=== PATIENT | female | born 2005 | race African-American/Black ===

== ENCOUNTER 2025-05-24 19:09 | Observation (INO) ==
--- NOTE | 2025-05-24 19:34 | Emergency Department Note ---
Impression & Plan Acute hyperglycemia, Nausea & vomiting ED Provider Note CHIEF COMPLAINT: Nausea, vomiting, diarrhea x 1 day HISTORY OF PRESENT ILLNESS: This 19-year-old female patient presents to the emergency department via private vehicle for evaluation of nausea, vomiting, diarrhea. Symptoms started this morning. Patient presents with her friend/roommate who assists with the history. The patient and her roommate both ate Surendra Norman's swabs last evening. She states that this morning, both she and her roommate were vomiting. The patient finished her swab this morning and her symptoms progressed and worsened throughout the day. The roommate did not have any leftovers this morning and states her symptoms have resolved. She does admit to drinking some wine yesterday and had a shooter earlier today. She did vomit the shooter back up. She has been unable to keep down any food or fluids all day today. She developed runny diarrhea this evening. The patient states about 1 to 2 hours ago, she developed some tightness when she breathes and tingling down her extremities. She is not on OCPs. No leg pain or swelling. No recent surgery or procedure. She did recently travel about 2 weeks ago from [facility], but denies any personal or family history of DVT or PE. The patient states the difficulty breathing came on after the nausea, vomiting, and diarrhea have been ongoing. The patient did not try any medications for her symptoms. She denies any abdominal pain, but states her stomach feels upset. Denies any chest pain. No cough or recent URI symptoms. Patient denies any history of similar symptoms. She is on Prozac, but has been taking this medication for about 5 weeks with no medication dose changes or adjustments. History provided by: Patient and roommate REVIEW OF SYSTEMS: A 10 system review of systems was performed with positives and pertinent negatives listed in the history of present illness. All other systems were reviewed and are negative. ALLERGIES: NKDA PHYSICAL EXAM: VITALS: Vitals are noted on the nurse's note and reviewed by myself. GENERAL: This is a 19-year-old female, ill-appearing, in no acute distress, diaphoretic, well-developed well-nourished. SKIN: The skin was without rashes, erythema, edema, or bruising. There is no tenting of the skin. Capillary refill less than 2 seconds. HEAD: Normocephalic atraumatic. EYES: Conjunctivae without injection, sclerae without icterus. NOSE: Patent, turbinates without inflammation or discharge. No sinus tenderness. MOUTH: Mucous membranes moist. Tonsils are not enlarged. Pharynx without erythema or exudate. Uvula midline. Airway patent. Tongue does not deviate. NECK: Supple without nuchal rigidity. No lymphadenopathy. Cervical spine is nontender. No JVD. HEART: Regular rate and rhythm without murmurs gallops or rubs. LUNGS: Clear to auscultation bilaterally without wheezes, rales or rhonchi. No retractions or accessory muscle use. ABDOMEN: Positive bowel sounds x 4. Soft, nontender, without masses or organomegaly. Truong sign negative. No guarding or rebound tenderness. MUSCULOSKELETAL: No muscle atrophy, erythema, or edema noted. Full range of motion without joint tenderness in all extremities. No tenderness to palpation. Normal gait. Strength 5/5 throughout. NEURO: Patient was alert and oriented to person place and time. Normal sensation to light and sharp touch. Deep tendon reflexes 2+ throughout. No focal neurological deficits. An order was placed for continuous cardiac cath technician. The monitor showed a normal sinus rhythm at a ventricular rate of 92 bpm, per my interpretation. EKG was reviewed by myself and found to be sinus bradycardia with sinus arrhythmia at a rate of 57 beats per minute and per my interpretation reveals no ST elevation or depression. No T wave inversion. No prior EKG available for comparison. Imaging as interpreted by myself and the radiologist revealed no acute findings, with radiologist interpretation as above. I agree with the radiologist's findings as based upon my independent interpretation. EMERGENCY DEPARTMENT COURSE: The patient was evaluated as above. The patient presents to the emergency department for nausea, vomiting, diarrhea. This been ongoing for about a day. The patient is ill-appearing on examination. She is diaphoretic and actively dry heaving. IV access was obtained, labs were drawn. The patient was hydrated with 1 L of IV fluids. She was medicated with Zofran and Toradol. Labs reviewed. Per my interpretation, there is a leukocytosis of 17,000. No concerning anemia or thrombocytopenia. Coags normal. Renal function without significant abnormality. Hepatic function without significant abnormality. Patient mildly hypokalemic with a potassium of 3.2. Sodium is normal. Magnesium 2.1. hCG negative. Blood glucose elevated at 247. Urinalysis with 4+ ketones, 2+ glucose, epithelial cells. Stool culture is negative. Alcohol less than 10. VBG was added at this time due to the hyperglycemia. This shows a pH of 7.37, PCO2 of 30. The patient was medicated with an additional dose of IV Zofran. She remained nauseated and was medicated with IV Reglan and Benadryl. She was given additional 500 cc bolus of IV fluids. Repeat BSG 171 after first 1L IV fluids. I discussed case with my attending physician. Do recommend escalation of care/admission given the patient's new onset hyperglycemia. I am concerned that this could be a DKA presentation. Negative stool culture, so lower suspicion for food-borne illness or viral cause at this time. Patient was agreeable to admission. She denies any history of hyperglycemia or diabetes. I discussed case with Dr. Gonzales. He did agree to evaluate the patient. Please see his dictation regarding ongoing management of this patient. Case was discussed with the attending physician. This visit is during a period of high volume and high acuity in the emergency department. I attest that I have personally reviewed the patient medication list. I attest that I have reviewed the patient's blood pressure and it was found to be normal GCS: 15 In the evaluation and treatment of this patient the following differential diagnoses were entertained: Gastroenteritis, food borne illness, infections, appendicitis, diverticulitis, inflammatory bowel disease, obstruction, GI bleed, biliary pathology, volvulus, PE, pneumonia, viral illness, as well as other pathologies. The chart was completed utilizing [employer] Speech voice recognition software. Grammatical errors, random word insertions, pronoun errors, and incomplete sentences are an occasional consequence of this system due to software limitations, ambient noise, and hardware issues. Any formal questions or concerns about the content, text, or information contained within the body of this dictation should be directly addressed to the provider for clarification. Past Med/Surg History Problem List (Updated 05/25/25 @ 01:45 by Nicole Jack PA-C) Nausea & vomiting (Acute) Acute hyperglycemia (Acute) Medical History No pertinent past medical history Social History Smoking Status: Never smoker Preferred Language: [place] Feels Safe at Home: Yes Allergies Allergies Allergy/AdvReac Type Severity Reaction Status Date / Time No Known Allergies Allergy Verified 05/24/25 20:50 Home Meds Home Medications Medication Instructions Recorded Confirmed fluoxetine 20 mg capsule (Prozac) 20 mg PO DAILY 05/24/25 05/24/25 Results & Data (ED) Vital Signs Vital Signs - 24 hr 05/24/25 19:11 05/24/25 19:39 05/24/25 19:45 Temperature 36.3 C L Temperature Source Oral Pulse Rate 92 H 59 L 55 L Pulse Rate [Left Apical] Respiratory Rate 18 20 Respiratory Effort / Characteristics Non-Labored Spontaneous Respiratory Depth Normal Respiratory Pattern Regular Blood Pressure 131/94 134/89 Blood Pressure [Right Arm] Blood Pressure Mean 106 104 Blood Pressure Mean [Right Arm] Blood Pressure Position Sitting Pulse Oximetry 100 100 Oxygen Delivery Method Room Air Room Air Sepsis Recent Fever Within 48 Hours No Sepsis New/Unexplained Change in Mental Status N/A Sepsis Action Taken by Nursing No Action Required 05/24/25 20:01 05/24/25 20:12 05/24/25 20:27 Temperature Temperature Source Pulse Rate 79 92 H Pulse Rate [Left Apical] Respiratory Rate 19 22 Respiratory Effort / Characteristics Respiratory Depth Respiratory Pattern Blood Pressure 130/105 H Blood Pressure [Right Arm] Blood Pressure Mean 118 Blood Pressure Mean [Right Arm] Blood Pressure Position Pulse Oximetry 100 100 Oxygen Delivery Method Room Air Room Air Sepsis Recent Fever Within 48 Hours Sepsis New/Unexplained Change in Mental Status Sepsis Action Taken by Nursing 05/24/25 21:34 05/24/25 22:12 05/24/25 22:54 Temperature Temperature Source Pulse Rate 66 Pulse Rate [Left Apical] 70 Respiratory Rate 24 20 Respiratory Effort / Characteristics Non-Labored Spontaneous Respiratory Depth Normal Respiratory Pattern Regular Blood Pressure Blood Pressure [Right Arm] 122/86 121/80 Blood Pressure Mean Blood Pressure Mean [Right Arm] 98 93 Blood Pressure Position Pulse Oximetry 100 100 Oxygen Delivery Method Room Air Room Air Sepsis Recent Fever Within 48 Hours Sepsis New/Unexplained Change in Mental Status Sepsis Action Taken by Nursing Laboratory Data 05/24/25 19:45 05/25/25 00:16 Lab Results 05/24/25 05/24/25 05/24/25 Range/Units 19:45 19:48 20:06 WBC 16.94 H (4.8-10.8) K/ul RBC 4.75 (4.20-5.40) M/uL Hgb 13.7 (12.0-16.0) g/dl Hct 41.4 (37.0-47.0) % MCV 87.2 (80.0-100.0) fL MCH 28.8 (25.0-34.0) pg MCHC 33.1 (32.0-36.0) g/dL RDW Std Deviation 41.7 (36.4-46.3) fL RDW Coeff of Allie 13.0 (11.5-14.5) % Plt Count 430 H (130-400) K/uL MPV 9.5 (9.4-12.4) fL Immature Gran % (Auto) 0.4 % Neut % (Auto) 87.5 % Lymph % (Auto) 8.0 % [place] % (Auto) 3.9 % Eos % (Auto) 0.0 % Baso % (Auto) 0.2 % Neut # (Auto) 14.84 H (1.40-6.50) K/uL Lymph # (Auto) 1.35 (1.20-3.40) K/uL [place] # (Auto) 0.66 H (0.11-0.59) K/uL Eos # (Auto) 0.00 (0.00-0.50) K/uL Baso # (Auto) 0.03 (0.00-0.20) K/uL Immature Gran # (Auto) 0.06 (0.01-0.20) K/uL PT 10.5 (9.0-12.0) Seconds INR 1.0 (0.9-1.1) APTT 21 (21-31) Seconds PTT Ratio 0.8 VBG pH (7.36-7.41) VBG pCO2 (38-50) mmHg VBG pO2 mmHg VBG HCO3 mmol/L VBG O2 Saturation % VBG Base Excess mEq/L Sodium 140 (136-145) mmol/L Potassium 3.2 L (3.5-5.1) mmol/L Chloride 102 (98-107) mmol/L Carbon Dioxide 17 L (21-32) mmol/L Anion Gap 21 H (3-11) BUN 18 (6-23) mg/dl Creatinine 0.87 (0.6-1.2) mg/dl Est Cr Clr Drug Dosing 58.1 ml/min eGFR 97.15 BUN/Creatinine Ratio 20.7 H (10-20) Glucose 247 H (70-99(Fasting)) mg/dl POC Glucose (70-99) mg/dl Calcium 10.8 H (8.6-10.3) mg/dl Phosphorus 2.0 L (2.5-4.9) mg/dl Magnesium 2.1 (1.7-2.4) mg/dl Total Bilirubin 0.9 (0.2-1.0) mg/dl AST 60 H (13-39) U/L ALT 48 (7-52) U/L Alkaline Phosphatase 65 (34-104) U/L Total Protein 9.3 H (6.0-8.3) gm/dl Albumin 5.3 H (3.4-5.0) gm/dl Globulin 4.0 (2.5-4.0) gm/dl Albumin/Globulin Ratio 1.3 (0.9-2) Lipase 36 (11-82) U/L Procalcitonin < 0.02 (0-0.5) ng/ml TSH 0.326 (0.300-4.500) uIu/ml HCG, Qual Negative (Negative) Urine Color Urine Appearance (Clear) Urine pH (4.5-7.5) Ur Specific Ideal (1.000-1.030) Urine Protein (Negative) Urine Glucose (UA) (Negative) Urine Ketones (Negative) Urine Blood (Negative) Urine Nitrite (Negative) Urine Bilirubin (Negative) Urine Urobilinogen (Negative) Ur Leukocyte Esterase (Negative) Urine WBC (Auto) (0-5) /hpf Urine RBC (Auto) (0-2) /hpf U Hyaline Cast (Auto) (0-2) /lpf U Epithel Cells (Auto) (0-2) /hpf Urine Bacteria (Auto) (None Seen) Hyaline Casts (None Presnt) /lpf Urine Comment Stl C. cayetanensis PCR Not Detected (NotDetected) Stool Rotavirus A PCR Not Detected (NotDetected) Stl Adenov F 40/41 PCR Not Detected (NotDetected) Stool Astrovirus (PCR) Not Detected (NotDetected) Stool Campylobacter PCR Not Detected (NotDetected) Stool Cryptosporidium PCR Not Detected (NotDetected) Stl E.coli Shiga Tox PCR Not Detected (NotDetected) Stl Enterotoxigenic E PCR Not Detected (NotDetected) Stool EPEC (PCR) Not Detected (NotDetected) Stool EAEC (PCR) Not Detected (NotDetected) Stl E. histolytica PCR Not Detected (NotDetected) Stool Giardia Lamblia PCR Not Detected (NotDetected) Stool Salmonella PCR Not Detected (NotDetected) Stool Sapovirus (PCR) Not Detected (NotDetected) Stl P. shigelloides PCR Not Detected (NotDetected) Stl Shigella/EIEC PCR Not Detected (NotDetected) St Y.enterocolitica PCR Not Detected (NotDetected) Stool Vibrio (PCR) Not Detected (NotDetected) Stl Vibrio cholerae PCR Not Detected (NotDetected) Stl Norovirus GI/GII PCR Not Detected (NotDetected) Ethyl Alcohol mg/dL < 10.0 (<10.0) mg/dl 05/24/25 05/24/25 05/24/25 Range/Units 20:52 22:20 23:05 WBC (4.8-10.8) K/ul RBC (4.20-5.40) M/uL Hgb (12.0-16.0) g/dl Hct (37.0-47.0) % MCV (80.0-100.0) fL MCH (25.0-34.0) pg MCHC (32.0-36.0) g/dL RDW Std Deviation (36.4-46.3) fL RDW Coeff of Allie (11.5-14.5) % Plt Count (130-400) K/uL MPV (9.4-12.4) fL Immature Gran % (Auto) % Neut % (Auto) % Lymph % (Auto) % [place] % (Auto) % Eos % (Auto) % Baso % (Auto) % Neut # (Auto) (1.40-6.50) K/uL Lymph # (Auto) (1.20-3.40) K/uL [place] # (Auto) (0.11-0.59) K/uL Eos # (Auto) (0.00-0.50) K/uL Baso # (Auto) (0.00-0.20) K/uL Immature Gran # (Auto) (0.01-0.20) K/uL PT (9.0-12.0) Seconds INR (0.9-1.1) APTT (21-31) Seconds PTT Ratio VBG pH 7.37 (7.36-7.41) VBG pCO2 30 L (38-50) mmHg VBG pO2 34 mmHg VBG HCO3 17 mmol/L VBG O2 Saturation 63.4 % VBG Base Excess -6.7 mEq/L Sodium (136-145) mmol/L Potassium (3.5-5.1) mmol/L Chloride (98-107) mmol/L Carbon Dioxide (21-32) mmol/L Anion Gap (3-11) BUN (6-23) mg/dl Creatinine (0.6-1.2) mg/dl Est Cr Clr Drug Dosing ml/min eGFR BUN/Creatinine Ratio (10-20) Glucose (70-99(Fasting)) mg/dl POC Glucose 171 H (70-99) mg/dl Calcium (8.6-10.3) mg/dl Phosphorus (2.5-4.9) mg/dl Magnesium (1.7-2.4) mg/dl Total Bilirubin (0.2-1.0) mg/dl AST (13-39) U/L ALT (7-52) U/L Alkaline Phosphatase (34-104) U/L Total Protein (6.0-8.3) gm/dl Albumin (3.4-5.0) gm/dl Globulin (2.5-4.0) gm/dl Albumin/Globulin Ratio (0.9-2) Lipase (11-82) U/L Procalcitonin (0-0.5) ng/ml TSH (0.300-4.500) uIu/ml HCG, Qual (Negative) Urine Color Yellow Urine Appearance Clear (Clear) Urine pH 6.5 (4.5-7.5) Ur Specific Ideal 1.023 (1.000-1.030) Urine Protein 1+ H (Negative) Urine Glucose (UA) 2+ H (Negative) Urine Ketones 4+ H (Negative) Urine Blood Negative (Negative) Urine Nitrite Negative (Negative) Urine Bilirubin Negative (Negative) Urine Urobilinogen Negative (Negative) Ur Leukocyte Esterase Negative (Negative) Urine WBC (Auto) 0-5 (0-5) /hpf Urine RBC (Auto) 0-2 (0-2) /hpf U Hyaline Cast (Auto) 11-20 H (0-2) /lpf U Epithel Cells (Auto) 3-5 H (0-2) /hpf Urine Bacteria (Auto) None Seen (None Seen) Hyaline Casts Present A (None Presnt) /lpf Urine Comment Stl C. cayetanensis PCR (NotDetected) Stool Rotavirus A PCR (NotDetected) Stl Adenov F 40/41 PCR (NotDetected) Stool Astrovirus (PCR) (NotDetected) Stool Campylobacter PCR (NotDetected) Stool Cryptosporidium PCR (NotDetected) Stl E.coli Shiga Tox PCR (NotDetected) Stl Enterotoxigenic E PCR (NotDetected) Stool EPEC (PCR) (NotDetected) Stool EAEC (PCR) (NotDetected) Stl E. histolytica PCR (NotDetected) Stool Giardia Lamblia PCR (NotDetected) Stool Salmonella PCR (NotDetected) Stool Sapovirus (PCR) (NotDetected) Stl P. shigelloides PCR (NotDetected) Stl Shigella/EIEC PCR (NotDetected) St Y.enterocolitica PCR (NotDetected) Stool Vibrio (PCR) (NotDetected) Stl Vibrio cholerae PCR (NotDetected) Stl Norovirus GI/GII PCR (NotDetected) Ethyl Alcohol mg/dL (<10.0) mg/dl Administered Medications Potassium Chloride 20 meq/ (Lactated Ringer's) 1,010 mls @ 250 mls/hr IV .Q4H3M STA Stop: 05/25/25 03:08 Last Infusion: 05/25/25 01:01 Dose: 0 mls/hr Documented By: Admin: 05/24/25 23:39 Dose: 250 mls/hr Documented By: SHLELEY Insulin Aspart (Insulin Aspart Per Unit Charge) 0 units SC ACHS NAEEM Stop: 06/23/25 23:09 Last Admin: 05/24/25 23:39 Dose: 2 units Documented By: SHELLEY Co-signed By: Discontinued Medications Diphenhydramine HCl (Diphenhydramine 50 Mg/Ml Vial) 12.5 mg IV NOW STA Stop: 05/24/25 22:44 Last Admin: 05/24/25 22:56 Dose: 12.5 mg Documented By: KEYON Sodium Chloride (Nss) 1,000 mls @ 999 mls/hr IV .Q1H1M ONE Stop: 05/24/25 20:30 Last Infusion: 05/24/25 20:55 Dose: Infused Documented By: Admin: 05/24/25 19:49 Dose: 999 mls/hr Documented By: KEYON Sodium Chloride (Nss) 500 mls @ 999 mls/hr IV .Q31M ONE Stop: 05/24/25 22:55 Last Infusion: 05/24/25 23:44 Dose: Infused Documented By: Admin: 05/24/25 22:56 Dose: 999 mls/hr Documented By: KEYON Acetaminophen (Ofirmev) 1,000 mg in 100 mls @ 400 mls/hr IV NOW STA Stop: 05/24/25 23:58 Last Infusion: 05/25/25 01:29 Dose: Infused Documented By: [facility] Admin: 05/25/25 00:57 Dose: 400 mls/hr Documented By: SHELLEY Ketorolac Tromethamine (Ketorolac Tromethamine 15 Mg/Ml Vial) 15 mg IV NOW STA Stop: 05/24/25 19:31 Last Admin: 05/24/25 19:50 Dose: 15 mg Documented By: KEYON Metoclopramide HCl (Metoclopramide Hcl Inj 5 Mg/Ml 2 Ml Vial) 5 mg IV ONE ONE Stop: 05/24/25 22:44 Last Admin: 05/24/25 22:56 Dose: 5 mg Documented By: KEYON Ondansetron HCl (Ondansetron Inj 2 Mg/Ml 2 Ml Vial) 4 mg IV NOW STA Stop: 05/24/25 19:31 Last Admin: 05/24/25 19:49 Dose: 4 mg Documented By: KEYON Ondansetron HCl (Ondansetron Inj 2 Mg/Ml 2 Ml Vial) 4 mg IV NOW STA Stop: 05/24/25 20:42 Last Admin: 05/24/25 20:50 Dose: 4 mg Documented By: KEYON Potassium Chloride (Potassium Chloride Pwd 20 Meq Pack) 40 meq PO NOW STA Stop: 05/24/25 23:14 Last Admin: 05/24/25 23:39 Dose: 40 meq Documented By: Imaging Data Radiologist's Impression: Chest X-Ray 05/24/25 19:37 Chest radiograph, one view History: Vomiting Comparison: None Findings: Single AP view of the chest performed. No focal consolidation or pleural effusion. No pneumothorax. The cardiomediastinal silhouette is within normal limits. Normal pulmonary vascularity. No evidence for lymphadenopathy. No visualized bony or soft tissue abnormality. Impression: Normal chest radiograph Electronically signed by Moises Epperson 05-24-2025 8:04 PM Discharge Plan Visit Data Chief Complaint: Vomiting Stated Complaint: THROWING UP, COLD HOT FLASHES ED Provider: Vinh Hughes ED Midlevel Provider: Nicole Jack Discharge Problem: Acute hyperglycemia, Nausea & vomiting Patient Disposition: Admitted As Inpatient Condition: Good Discharge Instructions Interventions: ED Discharge Assessment Last Done: 05/25/25 01:00
[2025-05-24] MEDS: SODIUM CHLORIDE 0.9% 1,000 ML IV ONE (19:49)
[2025-05-24] MEDS: ONDANSETRON INJ 2 MG/ML 2 ML VIAL IV STA ×2 (19:49→20:50)
[2025-05-24] MEDS: KETOROLAC TROMETHAMINE 15 MG/ML VIAL IV STA (19:50)
[2025-05-24 19:59] LABS: Hematocrit (blood only) 41.4 % (37.0-47.0); Hemoglobin 13.7 g/dl (12.0-16.0); Immature Granulocytes # (auto) 0.06 K/uL (0.01-0.20); Immature Granulocytes % (auto) 0.4 %; Mean Corpuscular Hemoglobin 28.8 pg (25.0-34.0); Mean Corpuscular Volume 87.2 fL (80.0-100.0); Platelet Count 430 K/uL (130-400); RDW Standard Deviation 41.7 fL (36.4-46.3); Red Blood Count 4.75 M/uL (4.20-5.40); White Blood Count 16.94 K/ul (4.8-10.8)
--- NOTE | 2025-05-24 20:04 | XRay Report ---
Chest radiograph, one view History: Vomiting Comparison: None Findings: Single AP view of the chest performed. No focal consolidation or pleural effusion. No pneumothorax. The cardiomediastinal silhouette is within normal limits. Normal pulmonary vascularity. No evidence for lymphadenopathy. No visualized bony or soft tissue abnormality. Impression: Normal chest radiograph Electronically signed by Moises Epperson 05-24-2025 8:04 PM
[2025-05-24 20:15] LABS: Alanine Aminotransferase 48.0 U/L (7-52); Albumin Globulin Ratio 1.3 (0.9-2); Alkaline Phosphatase 65.0 U/L (34-104); Anion Gap 21.0 (3-11); Bilirubin,Total 0.9 mg/dl (0.2-1.0); Blood Urea Nitrogen 18.0 mg/dl (6-23); Calcium 10.8 mg/dl (8.6-10.3); Carbon Dioxide 17.0 mmol/L (21-32); Chloride 102.0 mmol/L (98-107); Creatinine Clr Calc Pharmacy 58.1 ml/min; Globulin 4.0 gm/dl (2.5-4.0); Glucose 247.0 mg/dl (70-99(Fasting)); Lipase 36.0 U/L (11-82); Magnesium 2.1 mg/dl (1.7-2.4); Potassium 3.2 mmol/L (3.5-5.1); Sodium 140.0 mmol/L (136-145); Total Protein 9.3 gm/dl (6.0-8.3)
[2025-05-24 20:25] LABS: Pregnancy Test, Serum Negative (Negative)
[2025-05-24 20:28] LABS: INR 1.0 (0.9-1.1); Partial Thromboplastin Time 21 Seconds (21-31); Prothrombin Time 10.5 Seconds (9.0-12.0)
[2025-05-24 21:25] LABS: Appearance Urine Clear (Clear); Bacteria Urine Automated None Seen (None Seen); Glucose Urine UA 2+ (Negative); RBC Urine Automated 0-2 /hpf (0-2); WBC Urine Automated 0-5 /hpf (0-5)
[2025-05-24 22:29] LABS: Base Excess VBG -6.7 mEq/L; HCO3 VBG 17 mmol/L; Oxygen Saturation VBG 63.4 %; PCO2 VBG 30 mmHg (38-50); PO2 VBG 34 mmHg; pH VBG 7.37 (7.36-7.41)
[2025-05-24 22:53] LABS: Adenovirus F 40/41 PCR Not Detected (NotDetected); Campylobacter PCR Not Detected (NotDetected); Enteroaggregative E.coli(EAEC) Not Detected (NotDetected); Shiga-like Toxin E.coli (STEC) Not Detected (NotDetected); Vibrio species PCR Not Detected (NotDetected)
[2025-05-24] MEDS: METOCLOPRAMIDE HCL INJ 5 MG/ML 2 ML VIAL IV ONE (22:56)
[2025-05-24] MEDS: diphenhydrAMINE 50 MG/ML VIAL IV STA (22:56)
[2025-05-24] MEDS: SODIUM CHLORIDE 0.9% 500 ML IV ONE (22:56)
[2025-05-24] MEDS ORDERED: GLUCOSE 10 TAB/TUBE PO PRN (23:08)
[2025-05-24] MEDS ORDERED: DEXTROSE 50% 50 ML SYRINGE IV PRN (23:08)
[2025-05-24] MEDS ORDERED: GLUCOSE 40% GEL 15 GM TUBE PO PRN (23:08)
[2025-05-24] MEDS ORDERED: CARBOHYDRATES FOR HYPOGLYCEMIA PO PRN (23:08)
[2025-05-24] MEDS ORDERED: GLUCAGON FOR INJ 1 MG VIAL SQ PRN (23:08)
[2025-05-24] MEDS: POTASSIUM CHLORIDE PWD 20 MEQ PACK PO STA (23:39)
[2025-05-24] MEDS: INSULIN ASPART PER UNIT CHARGE SC SCH (23:39)
[2025-05-24] MEDS: POTASSIUM CHLORIDE 20 MEQ in LACTATED RINGER'S 1,000 ML IV STA (23:39)
--- NOTE | 2025-05-24 23:42 | History & Physical Report ---
Date of Service May 24, 2025 Assessment & Plan (1) Acute gastroenteritis: Plan: Assessment and plan below following discussion of case with ED provider and reviewing patient history/pertinent normal/abnormal diagnostic test results. Acute gastroenteritis Possibly foodborne illness Patient nontoxic Mild DKA No prior diagnosis of DM Hypercalcemia secondary to clinical dehydration Mood disorder, at baseline as per patient Malnutrition, re: low BMI (patient weight has always been on the historical guide side as per patient/family) OBS Supportive management for presumptive viral gastroenteritis IVF ISS BG goal 110-140 for now Check hemoglobin A1c DM education, outpatient Endocrinology consultation if hemoglobin A1c supports diagnosis of DM Check Phos and serum PTH DVT prophylaxis. SCDs Full code Patient father requesting updates providers. Dr. Zoltan Barron, contact #[phone]. Text document was generated using [employer] voice recognition software. It may contain grammatical or spelling errors. Kindly contact undersigned for clarification of any documentation item in question. History of Present Illness Chief Complaint: Nausea vomiting diarrhea Primary Care Provider: Dr. Charlton of [facility] History obtained from patient, family, and records. Medical history significant for mood disorder. Patient is a resident of [facility] who is in town this weekend to visit her friend. 1 day history of nausea, vomiting, watery diarrhea associated with mild central abdominal cramping. Denies chest pain, SOB. Patient had a sandwich at a local store yesterday. No known sick contacts. No recent antibiotics. Patient brought to ER for evaluation. Medical History as above Surgical History : None Family History : DM Personal/Social history : Non-smoker, no EtOH intake, college student Allergies Allergy/AdvReac Type Severity Reaction Status Date / Time No Known Allergies Allergy Verified 05/24/25 20:50 Home Medications Medication Instructions Recorded Confirmed Type fluoxetine 20 mg capsule (Prozac) 20 mg PO DAILY 05/24/25 05/24/25 History Past Med/Surg History Problem List (Updated 05/25/25 @ 08:49 by Kalyan Gonzales MD) Acute gastroenteritis Nausea & vomiting (Acute) Acute hyperglycemia (Acute) Medical History No pertinent past medical history Social History Smoking Status: Never smoker Hx Alcohol Use: Yes Alcohol type: wine Hx Substance Use: Yes Last Used Substance: Days (ago) Preferred Language: Arabic Communication Ability: Effective Pen And Pencil Repairer Required: No Beliefs That Will Affect Care: None Current Living Situation: Parent Current Living Situation Comment: lives at home with mother and father Feels Safe at Home: Yes Safety Concerns: Feels Safe At This Time Review of Systems Review of Systems: As per HPI, all other systems reviewed and negative Physical Exam Physical Exam: GENERAL: Slightly uncomfortable, underweight, no respiratory distress SKIN: Normal color, warm HEENT: [place] palpebral conjunctivae, no ptosis, dry buccal mucosa NECK : Supple, no tenderness CHEST : CTA, no tenderness HEART : RRR, no obvious murmurs ABDOMEN: no distention, nontender EXTREMITIES : No LE swelling/tenderness, palpable pulses, no other conspicuous deformities noted NEUROLOGIC : Coherent, no facial asymmetry, no other gross focality Results & Data Results & Data Vital Signs (Past 12 Hours) Vital Signs Temp Pulse Pulse Resp BP BP Pulse Ox 05/24/25 22:54 70 20 121/80 100 05/24/25 22:12 66 24 100 05/24/25 21:34 122/86 05/24/25 20:27 92 H 22 100 05/24/25 20:12 79 19 100 05/24/25 20:01 130/105 H 05/24/25 19:45 55 L 20 134/89 100 05/24/25 19:39 59 L 05/24/25 19:11 36.3 C L 92 H 18 131/94 100 O2 Del Method 05/24/25 22:54 Room Air 05/24/25 22:12 Room Air 05/24/25 21:34 05/24/25 20:27 Room Air 05/24/25 20:12 Room Air 05/24/25 20:01 05/24/25 19:45 Room Air 05/24/25 19:39 05/24/25 19:11 Room Air Laboratory Results Laboratory Results WBC 16.94 K/ul (4.8-10.8) H 05/24/25 19:45 RBC 4.75 M/uL (4.20-5.40) 05/24/25 19:45 Hgb 13.7 g/dl (12.0-16.0) 05/24/25 19:45 Hct 41.4 % (37.0-47.0) 05/24/25 19:45 MCV 87.2 fL (80.0-100.0) 05/24/25 19:45 MCH 28.8 pg (25.0-34.0) 05/24/25 19:45 MCHC 33.1 g/dL (32.0-36.0) 05/24/25 19:45 RDW Std Deviation 41.7 fL (36.4-46.3) 05/24/25 19:45 RDW Coeff of Allie 13.0 % (11.5-14.5) 05/24/25 19:45 Plt Count 430 K/uL (130-400) H 05/24/25 19:45 MPV 9.5 fL (9.4-12.4) 05/24/25 19:45 Immature Gran % (Auto) 0.4 % 05/24/25 19:45 Neut % (Auto) 87.5 % 05/24/25 19:45 Lymph % (Auto) 8.0 % 05/24/25 19:45 Early % (Auto) 3.9 % 05/24/25 19:45 Eos % (Auto) 0.0 % 05/24/25 19:45 Baso % (Auto) 0.2 % 05/24/25 19:45 Neut # (Auto) 14.84 K/uL (1.40-6.50) H 05/24/25 19:45 Lymph # (Auto) 1.35 K/uL (1.20-3.40) 05/24/25 19:45 Early # (Auto) 0.66 K/uL (0.11-0.59) H 05/24/25 19:45 Eos # (Auto) 0.00 K/uL (0.00-0.50) 05/24/25 19:45 Baso # (Auto) 0.03 K/uL (0.00-0.20) 05/24/25 19:45 Immature Gran # (Auto) 0.06 K/uL (0.01-0.20) 05/24/25 19:45 PT 10.5 Seconds (9.0-12.0) 05/24/25 19:45 INR 1.0 (0.9-1.1) 05/24/25 19:45 APTT 21 Seconds (21-31) 05/24/25 19:45 PTT Ratio 0.8 05/24/25 19:45 VBG pH 7.37 (7.36-7.41) 05/24/25 22:20 VBG pCO2 30 mmHg (38-50) L 05/24/25 22:20 VBG pO2 34 mmHg 05/24/25 22:20 VBG HCO3 17 mmol/L 05/24/25 22:20 VBG O2 Saturation 63.4 % 05/24/25 22:20 VBG Base Excess -6.7 mEq/L 05/24/25 22:20 Sodium 140 mmol/L (136-145) 05/24/25 19:45 Potassium 3.2 mmol/L (3.5-5.1) L 05/24/25 19:45 Chloride 102 mmol/L (98-107) 05/24/25 19:45 Carbon Dioxide 17 mmol/L (21-32) L 05/24/25 19:45 Anion Gap 21 (3-11) H 05/24/25 19:45 BUN 18 mg/dl (6-23) 05/24/25 19:45 Creatinine 0.87 mg/dl (0.6-1.2) 05/24/25 19:45 Est Cr Clr Drug Dosing 58.1 ml/min 05/24/25 19:45 eGFR 97.15 05/24/25 19:45 BUN/Creatinine Ratio 20.7 (10-20) H 05/24/25 19:45 Glucose 247 mg/dl (70-99(Fasting)) H 05/24/25 19:45 POC Glucose 171 mg/dl (70-99) H 05/24/25 23:05 Calcium 10.8 mg/dl (8.6-10.3) H 05/24/25 19:45 Phosphorus 2.0 mg/dl (2.5-4.9) L 05/24/25 19:45 Magnesium 2.1 mg/dl (1.7-2.4) 05/24/25 19:45 Total Bilirubin 0.9 mg/dl (0.2-1.0) 05/24/25 19:45 AST 60 U/L (13-39) H 05/24/25 19:45 ALT 48 U/L (7-52) 05/24/25 19:45 Alkaline Phosphatase 65 U/L (34-104) 05/24/25 19:45 Total Protein 9.3 gm/dl (6.0-8.3) H 05/24/25 19:45 Albumin 5.3 gm/dl (3.4-5.0) H 05/24/25 19:45 Globulin 4.0 gm/dl (2.5-4.0) 05/24/25 19:45 Albumin/Globulin Ratio 1.3 (0.9-2) 05/24/25 19:45 Lipase 36 U/L (11-82) 05/24/25 19:45 Procalcitonin < 0.02 ng/ml (0-0.5) 05/24/25 19:45 HCG, Qual Negative (Negative) 05/24/25 19:45 Urine Color Yellow 05/24/25 20:52 Urine Appearance Clear (Clear) 05/24/25 20:52 Urine pH 6.5 (4.5-7.5) 05/24/25 20:52 Ur Specific [place] 1.023 (1.000-1.030) 05/24/25 20:52 Urine Protein 1+ (Negative) H 05/24/25 20:52 Urine Glucose (UA) 2+ (Negative) H 05/24/25 20:52 Urine Ketones 4+ (Negative) H 05/24/25 20:52 Urine Blood Negative (Negative) 05/24/25 20:52 Urine Nitrite Negative (Negative) 05/24/25 20:52 Urine Bilirubin Negative (Negative) 05/24/25 20:52 Urine Urobilinogen Negative (Negative) 05/24/25 20:52 Ur Leukocyte Esterase Negative (Negative) 05/24/25 20:52 Urine WBC (Auto) 0-5 /hpf (0-5) 05/24/25 20:52 Urine RBC (Auto) 0-2 /hpf (0-2) 05/24/25 20:52 U Hyaline Cast (Auto) 11-20 /lpf (0-2) H 05/24/25 20:52 U Epithel Cells (Auto) 3-5 /hpf (0-2) H 05/24/25 20:52 Urine Bacteria (Auto) None Seen (None Seen) 05/24/25 20:52 Hyaline Casts Present /lpf (None Presnt) A 05/24/25 20:52 Urine Comment 05/24/25 20:52 Stl C. cayetanensis PCR Not Detected (NotDetected) 05/24/25 19:48 Stool Rotavirus A PCR Not Detected (NotDetected) 05/24/25 19:48 Stl Adenov F 40/41 PCR Not Detected (NotDetected) 05/24/25 19:48 Stool Astrovirus (PCR) Not Detected (NotDetected) 05/24/25 19:48 Stool Campylobacter PCR Not Detected (NotDetected) 05/24/25 19:48 Stool Cryptosporidium PCR Not Detected (NotDetected) 05/24/25 19:48 Stl E.coli Shiga Tox PCR Not Detected (NotDetected) 05/24/25 19:48 Stl Enterotoxigenic E PCR Not Detected (NotDetected) 05/24/25 19:48 Stool EPEC (PCR) Not Detected (NotDetected) 05/24/25 19:48 Stool EAEC (PCR) Not Detected (NotDetected) 05/24/25 19:48 Stl E. histolytica PCR Not Detected (NotDetected) 05/24/25 19:48 Stool Giardia Lamblia PCR Not Detected (NotDetected) 05/24/25 19:48 Stool Salmonella PCR Not Detected (NotDetected) 05/24/25 19:48 Stool Sapovirus (PCR) Not Detected (NotDetected) 05/24/25 19:48 Stl P. shigelloides PCR Not Detected (NotDetected) 05/24/25 19:48 Stl Shigella/EIEC PCR Not Detected (NotDetected) 05/24/25 19:48 St Y.enterocolitica PCR Not Detected (NotDetected) 05/24/25 19:48 Stool Vibrio (PCR) Not Detected (NotDetected) 05/24/25 19:48 Stl Vibrio cholerae PCR Not Detected (NotDetected) 05/24/25 19:48 Stl Norovirus GI/GII PCR Not Detected (NotDetected) 05/24/25 19:48 Ethyl Alcohol mg/dL < 10.0 mg/dl (<10.0) 05/24/25 20:06 Impressions Chest X-Ray 05/24/25 19:37 Chest radiograph, one view History: Vomiting Comparison: None Findings: Single AP view of the chest performed. No focal consolidation or pleural effusion. No pneumothorax. The cardiomediastinal silhouette is within normal limits. Normal pulmonary vascularity. No evidence for lymphadenopathy. No visualized bony or soft tissue abnormality. Impression: Normal chest radiograph Electronically signed by Moises Epperson 05-24-2025 8:04 PM Diagnostic Findings EKG as per my interpretation :EKG as per my interpretation rate 55, sinus bradycardia, RAD, T wave abnormality septal leads
[2025-05-24 23:43] LABS: Thyroid Stimulating Hormone 0.326 uIu/ml (0.300-4.500)
[2025-05-24] MEDS ORDERED: PROMETHAZINE 6.25 MG/50.25 ML BAG IV PRN (23:44)
[2025-05-24] MEDS ORDERED: ACETAMINOPHEN 500 MG TAB PO PRN (23:44)
[2025-05-24] MEDS ORDERED: IBUPROFEN 200 MG TAB PO PRN (23:45)
[2025-05-25] MEDS ORDERED: POTASSIUM PHOS 3 MMOL/1 ML INFUSION IV STA
[2025-05-25 00:52] LABS: Anion Gap 12.0 (3-11); Blood Urea Nitrogen 13.0 mg/dl (6-23); Calcium 8.9 mg/dl (8.6-10.3); Carbon Dioxide 19.0 mmol/L (21-32); Chloride 110.0 mmol/L (98-107); Creatinine Clr Calc Pharmacy 75.5 ml/min; Glucose 143.0 mg/dl (70-99(Fasting)); Potassium 3.5 mmol/L (3.5-5.1); Sodium 141.0 mmol/L (136-145)
[2025-05-25] MEDS: ACETAMINOPHEN 1,000 MG/100 ML VIAL IV STA (00:57)
[2025-05-25] MEDS: POTASSIUM PHOSPHATE 9 MMOL in SODIUM CHLORIDE 0.9% 250 ML IV STA (02:00)
[2025-05-25] MEDS: PLASMA-LYTE A 1,000 ML IV ONE (04:56)
[2025-05-25 06:33] LABS: Alanine Aminotransferase 30.0 U/L (7-52); Albumin Globulin Ratio 1.9 (0.9-2); Alkaline Phosphatase 40.0 U/L (34-104); Anion Gap 7.0 (3-11); Bilirubin,Total 0.6 mg/dl (0.2-1.0); Blood Urea Nitrogen 8.0 mg/dl (6-23); Calcium 9.1 mg/dl (8.6-10.3); Carbon Dioxide 25.0 mmol/L (21-32); Chloride 109.0 mmol/L (98-107); Creatinine Clr Calc Pharmacy 97.8 ml/min; Globulin 2.2 gm/dl (2.5-4.0); Glucose 100.0 mg/dl (70-99(Fasting)); Potassium 4.3 mmol/L (3.5-5.1); Sodium 141.0 mmol/L (136-145); Total Protein 6.3 gm/dl (6.0-8.3)
[2025-05-25 06:36] LABS: Hematocrit (blood only) 31.1 % (37.0-47.0); Hemoglobin 10.5 g/dl (12.0-16.0); Immature Granulocytes # (auto) 0.03 K/uL (0.01-0.20); Immature Granulocytes % (auto) 0.2 %; Mean Corpuscular Hemoglobin 29.3 pg (25.0-34.0); Mean Corpuscular Volume 86.9 fL (80.0-100.0); Platelet Count 268 K/uL (130-400); RDW Standard Deviation 40.9 fL (36.4-46.3); Red Blood Count 3.58 M/uL (4.20-5.40); White Blood Count 12.61 K/ul (4.8-10.8)
[2025-05-25 07:28] LABS: Hemoglobin A1C 5.6 % (4.5-5.6)
[2025-05-25 08:20] VITALS: BP 119/82; PULSE 84; RESP 18; TEMP 98.4; O2SAT 99
[2025-05-25 12:37] LABS: Hematocrit (blood only) 31.5 % (37.0-47.0); Hemoglobin 10.6 g/dl (12.0-16.0); Mean Corpuscular Hemoglobin 29.0 pg (25.0-34.0); Mean Corpuscular Volume 86.1 fL (80.0-100.0); Platelet Count 257 K/uL (130-400); RDW Standard Deviation 41.2 fL (36.4-46.3); Red Blood Count 3.66 M/uL (4.20-5.40); White Blood Count 13.37 K/ul (4.8-10.8)
[2025-05-25 12:57] LABS: Anion Gap 9.0 (3-11); Blood Urea Nitrogen 6.0 mg/dl (6-23); Calcium 8.9 mg/dl (8.6-10.3); Carbon Dioxide 24.0 mmol/L (21-32); Chloride 111.0 mmol/L (98-107); Creatinine Clr Calc Pharmacy 92.7 ml/min; Glucose 123.0 mg/dl (70-99(Fasting)); Potassium 3.4 mmol/L (3.5-5.1); Sodium 144.0 mmol/L (136-145)
--- NOTE | 2025-05-25 13:54 | Discharge Summary ---
Date of Service May 25, 2025 Admission HPI Per Admitting Provider History obtained from patient, family, and records. Medical history significant for mood disorder. Patient is a resident of [facility] who is in town this weekend to visit her friend. 1 day history of nausea, vomiting, watery diarrhea associated with mild central abdominal cramping. Denies chest pain, SOB. Patient had a sandwich at a local store yesterday. No known sick contacts. No recent antibiotics. Patient brought to ER for evaluation. Medical History as above Surgical History : None Family History : DM Personal/Social history : Non-smoker, no EtOH intake, college student Admission Exam Per Admitting Provider GENERAL: Slightly uncomfortable, underweight, no respiratory distress SKIN: Normal color, warm HEENT: [place] palpebral conjunctivae, no ptosis, dry buccal mucosa NECK : Supple, no tenderness CHEST : CTA, no tenderness HEART : RRR, no obvious murmurs ABDOMEN: no distention, nontender EXTREMITIES : No LE swelling/tenderness, palpable pulses, no other conspicuous deformities noted NEUROLOGIC : Coherent, no facial asymmetry, no other gross focality Principal Diagnosis Acute gastroenteritis Possibly foodborne illness Discharge Exam GENERAL: NAD, underweight, no respiratory distress SKIN: Normal color, warm HEENT: [place] palpebral conjunctivae, no ptosis, moist buccal mucosa NECK : Supple, no tenderness CHEST : CTA, no tenderness HEART : RRR, no obvious murmurs ABDOMEN: no distention, nontender EXTREMITIES : No LE swelling/tenderness, palpable pulses, no other conspicuous deformities noted NEUROLOGIC : Coherent, no facial asymmetry, no other gross focality Discharge Data Allergies Allergy/AdvReac Type Severity Reaction Status Date / Time No Known Allergies Allergy Verified 05/24/25 20:50 Consultations 05/24/25 23:06 ED Decision to Admit Stat Hospital Course (1) Acute gastroenteritis: Per prior attending with addendum: Assessment and plan below following discussion of case with ED provider and reviewing patient history/pertinent normal/abnormal diagnostic test results. Acute gastroenteritis Possibly foodborne illness Patient nontoxic Mild DKA No prior diagnosis of DM Hypercalcemia secondary to clinical dehydration Mood disorder, at baseline as per patient Malnutrition, re: low BMI (patient weight has always been on the food tester side as per patient/family) OBS Supportive management for presumptive viral gastroenteritis IVF ISS BG goal 110-140 for now Check hemoglobin A1c DM education, outpatient Endocrinology consultation if hemoglobin A1c supports diagnosis of DM Check Phos and serum PTH DVT prophylaxis. SCDs Full code Patient father requesting updates providers. Dr. Zoltan Barron, contact #[phone]. Addendum 05/25/2025: Patient was seen and examined at bedside as a follow-up of foodborne acute gastroenteritis. Patient reports significant improvement in her nausea/vomiting/loose stools, almost back to her baseline. Stool PCR was negative, WBC trended down without antibiotic use. Hypercalcemia and leukocytosis likely secondary to dehydration. A1c 5.6, hence diabetes ruled out. Parathyroid hormone was elevated but calcium normalized after hydration. Patient advised to follow-up on parathyroid hormone level and calcium level as an outpatient once acute issues are resolved and encouraged to hold further discussion with her PCP regarding need for endocrinology evaluation based on repeat tests. She is being discharged with following instructions at the point of discharge: Follow-up with your primary care physician within a week time and likely you will need labs CBC/CMP/magnesium/phosphorus. As discussed at the bedside your white cell count might have been elevated due to acute stress from foodborne illness but keep an eye on any fever or ongoing issues with diarrhea. Follow-up with your primary care physician within a week time to make sure the WBC trend back to normal. Also discussed was your low hemoglobin level, recommend that you get full anemia workup upon discharge with your PCP office. Also discussed was elevated levels of parathyroid hormone. Recommend that you repeat both parathyroid hormone and calcium level in about a week time after the acute issues are resolved, coordinate with your PCP office to set up the test, and further management/possible endocrinology evaluation based on the repeat test. You will be discharged with few days of Zofran for nausea control. You can take [id number] electrolyte/Pedialyte solution for any further nausea/vomiting/diarrhea to replenish the lost electrolytes. Take your medications as prescribed. Please make sure that you are able to get your medications today by calling your pharmacy before you leave the hospital so that your treatment continuity is not broken. Text document was generated using [employer] voice recognition software. It may contain grammatical or spelling errors. Kindly contact undersigned for clarification of any documentation item in question. [facility] Attestation I certify that this patient is under my care and that I, or a physicians legal assistant working with me, had a face to-face encounter that meets the [id number] encounter requirements with this patient. The encounter with the patient was in whole, or in part, for the following medical condition, which is the primary reason for home health care (list medical condition): I certify that, based on my findings, the following services are medically necessary home health services: My clinical findings support the need for the above services because: Further, I certify that my clinical findings support that this patient is homebound (i.e. absences from home require considerable and taxing effort and are for medical reasons or latter-day services or infrequently or of short duration when for other reasons) because: Certification for Home Health Services: Based on the above findings, I certify that this patient is confined to the home and needs intermittent penitentiary care, physical therapy and/or speech therapy or continues to need occupational therapy. The patient is under my care, and I have initiated the establishment of the plan of care. This patient will be followed by a physician who will periodically review the plan of care. Total Time Total Time Spent Total Time Spent (In Minutes): 45 Discharge Plan Discharge Items Patient Disposition: Home - Self-Care Reason For Visit: ABD PAIN (PRIVATE RM PER REQ) Discharge Diagnosis: Acute gastroenteritis Possibly foodborne illness Condition on Discharge: Good Activity: Resume your previous activity Non-emergency contact: Primary Care Provider Call non-emergency contact if: you have any medication questions and your symptoms worsen Follow-up/Referrals: Carol Charlton MD [Primary Care Provider] - Diet: Regular Addtl Attending Provider Instructions: Follow-up with your primary care physician within a week time and likely you will need labs CBC/CMP/magnesium/phosphorus. As discussed at the bedside your white cell count might have been elevated due to acute stress from foodborne illness but keep an eye on any fever or ongoing issues with diarrhea. Follow-up with your primary care physician within a week time to make sure the WBC trend back to normal. Also discussed was your low hemoglobin level, recommend that you get full anemia workup upon discharge with your PCP office. Also discussed was elevated levels of parathyroid hormone. Recommend that you repeat both parathyroid hormone and calcium level in about a week time after the acute issues are resolved, coordinate with your PCP office to set up the test, and further management/possible endocrinology evaluation based on the repeat test. You will be discharged with few days of Zofran for nausea control. You can take [id number] electrolyte/Pedialyte solution for any further nausea/vomiting/diarrhea to replenish the lost electrolytes. Take your medications as prescribed. Please make sure that you are able to get your medications today by calling your pharmacy before you leave the hospital so that your treatment continuity is not broken. Pending Studies at Discharge: No Stand-Alone Forms: My [facility], Smoking Cessation Medications and DC Order Prescriptions: New ondansetron 4 mg tablet,disintegrating 4 mg PO BID PRN (Reason: nausea and vomiting) Qty: 10 0RF Continued fluoxetine [Prozac] 20 mg Capsule 20 mg PO DAILY Discharge Orders: Discharge Order (Routine); Ordered 05/25/25 Ordered By: Vani Tomlinson Admission Data Admit Date/Time: 05/24/25 23:43 Attending Provider: Vani Tomlinson Admit Provider: Kalyan Gonzales Primary Care Provider: Carol Charlton Other Providers: Kalyan Gonzales
[2025-05-25] MEDS: POTASSIUM CHLORIDE CRTAB 20 MEQ TABCR PO STA (14:45)
--- NOTE | 2025-05-26 10:32 | Electrocardiogram Report ---
Test Reason : Blood Pressure : */* mmHG Vent. Rate : 57 BPM Atrial Rate : 57 BPM P-R Int : 120 ms QRS Dur : 90 ms QT Int : 450 ms P-R-T Axes : 85 90 62 degrees QTcB Int : 438 ms Sinus bradycardia with marked sinus arrhythmia Rightward axis Borderline ECG No previous ECGs available Confirmed by Ed Lacey ([id number]) on 05/26/2025 10:31:43 AM Referred By: REFERRED SELF Confirmed By: Ed Lacey
== END 2025-05-25 14:59 | disposition home or self-care (01) ==
LOC: ED 19:09 → 3E 19:09